=== PATIENT | male | born 1980 ===

== ENCOUNTER 2017-02-23 21:44 | Emergency (ER) | payer OTHER ==
[~2017-02-23] VITALS: Ht 172.7 cm; Wt 83.0 kg
[2017-02-23 22:06] VITALS: Ht 172.7 cm; Wt 83.0 kg
--- NOTE | 2017-02-24 02:25 | RADRPT ---
PROCEDURE: Chest. CLINICAL INDICATION: Shortness of breath. TECHNIQUE: Single frontal view of the chest was obtained. COMPARISON: None. FINDINGS: The cardiac silhouette is within normal limits. The aortic arch is unremarkable. There is no focal consolidation, vascular congestion or pleural effusion. There is no pneumothorax. IMPRESSION: No evidence for active cardiopulmonary disease. .Angel Muller MD, MD Date Time Electronically viewed and signed by .Angel Muller MD, on 02/24/2017 02:25 .T/
--- NOTE | 2017-02-24 02:45 | ERD ---
ER Documentation Chief Complaint Chief Complaint SOB x2wk after took sex enhancement.Intermittent CP x 5 days,none now. HIV+ HPI 36-year-old male presents to emergency department for multiple complaints. Patient is complaining of episode of on and off shortness of breath, intermittent chest pains after taking isopopryl nitrate for sexual enhancement patient has been having on and off symptoms. Patient described the chest pain as sharp pain, 4/10 scale, not better or worse with anything. Patient also had this chest pain when he had an argument with his mom. Patient denies any chest pain at this time. Patient denies any dyspnea on exertion or dyspnea on lying down. Patient denies any dizziness ROS All systems reviewed and are negative except as per history of present illness. Medications Home Meds Reported Medications [none] Unknown Strength No Conflict Check 02/24/17 Allergies Allergies: Coded Allergies: No Known Allergy (Unverified , 02/23/17) PMhx/Soc Medical and Surgical Hx: pt denies Surgical Hx History of Surgery: No Anesthesia Reaction: No Hx Neurological Disorder: No Hx Respiratory Disorders: No Hx Cardiac Disorders: No Hx Psychiatric Problems: No Hx Miscellaneous Medical Probl: Yes (HIV+ 5 years) Hx Alcohol Use: No Hx Substance Use: No Hx Tobacco Use: No Smoking Status: Never smoker Physical Exam Vitals Vital Signs Date Time Temp Pulse Resp B/P Pulse Ox O2 Delivery O2 Flow Rate FiO2 02/23/17 22:06 97.0 88 18 138/96 98 Physical Exam GENERAL: The patient is well developed and appropriate for usual state of health, in no apparent distress. CHEST: Clear to auscultation bilaterally. There are no rales, wheezes or rhonchi. HEART: Regular rate and rhythm. No murmurs, clicks, rubs or gallops. No S3 or S4. ABDOMEN: Soft, nontender and nondistended. Good bowel sounds. No rebound or guarding. No gross peritonitis. No gross organomegaly or masses. No Melissa sign or McBurney point tenderness. BACK: No midline or flank tenderness. EXTREMITIES: Equal pulses bilaterally. There is no peripheral clubbing, cyanosis or edema. No focal swelling or erythema. Full range of motion. Grossly neurovascularly intact. NEURO: Alert and oriented. Cranial nerves 2-12 intact. Motor strength in all 4 extremities with 5/5 strength. Sensation grossly intact. Normal speech and gait. SKIN: There is no apparent rash or petechia. The skin is warm and dry. HEMATOLOGIC AND LYMPHATIC: There is no evidence of excessive bruising or lymphedema. No gross cervical, axillary, or inguinal lymphadenopathy. Result Diagram: 02/24/17 0241 02/24/17 0241 Results 24 hrs Laboratory Tests Test 02/24/17 02:41 White Blood Count 6.710^3/ul Red Blood Count 5.5610^6/ul Hemoglobin 17.2g/dl Hematocrit 49.1% Mean Corpuscular Volume 88.3fl Mean Corpuscular Hemoglobin 30.9pg Mean Corpuscular Hemoglobin Concent 35.0g/dl Red Cell Distribution Width 12.3% Platelet Count 05108^3/UL Mean Platelet Volume 10.4fl Neutrophils % 55.9% Lymphocytes % 31.0% Monocytes % 7.6% Eosinophils % 4.3% Basophils % 0.6% Nucleated Red Blood Cells % 0.0/100WBC Neutrophils # 3.810^3/ul Lymphocytes # 2.110^3/ul Monocytes # 0.510^3/ul Eosinophils # 0.310^3/ul Basophils # 0.010^3/ul Nucleated Red Blood Cells # 0.010^3/ul Sodium Level 145mmol/L Potassium Level 4.1mmol/L Chloride Level 103mmol/L Carbon Dioxide Level 30mmol/L Anion Gap 16 Blood Urea Nitrogen 11mg/dl Creatinine 0.97mg/dl Glucose Level 95mg/dl Calcium Level 9.5mg/dl Total Bilirubin 0.7mg/dl Direct Bilirubin 0.00mg/dl Indirect Bilirubin 0.7mg/dl Aspartate Amino Transf (AST/SGOT) 28IU/L Alanine Aminotransferase (ALT/SGPT) 39IU/L Alkaline Phosphatase 70IU/L Troponin I < 0.012ng/ml Total Protein 7.8g/dl Albumin 5.3g/dl Globulin 2.50g/dl Albumin/Globulin Ratio 2.12 EKG was done, read by me and is normal sinus rhythm at a rate of 71, normal axis , there is no ST changes or changes in the EKG that indicates any cardiac emergencies at this time. Patient's EKG was also reviewed by Dr. Yang. Impression: no acute findings on EKG PROCEDURE: Chest. CLINICAL INDICATION: Shortness of breath. TECHNIQUE: Single frontal view of the chest was obtained. COMPARISON: None. FINDINGS: The cardiac silhouette is within normal limits. The aortic arch is unremarkable. There is no focal consolidation, vascular congestion or pleural effusion. There is no pneumothorax. IMPRESSION: No evidence for active cardiopulmonary disease. .Angel Muller MD, MD Date Time Electronically viewed and signed by .Angel Muller MD, MD on 02/24/2017 02:25 .T/ CC: JOHN KUMAR NP Procedures/MDM Medical Decision Making: Symptoms of chest pain nonspecific at this time, most likely is consistent with normal musculoskeletal pain, possibly anxiety. There is low suspicion for cardiopulmonary emergencies at this time. Patient has low risk factors. EKG is normal, there is no changes in the EKG that indicates cardiac emergencies. Chest X-ray does not show cardiopulmonary emergencies at this time. There is low suspicion for aortic aneurysm, myocardial infarction, pneumothorax, pleural effusion, pulmonary embolism, or any other cardiopulmonary emergencies at this time. Cardiac markers are normal. Negative troponin puts patient is at low risk for acute coronary syndrome, heart score is 1. Is advised to follow-up with primary care doctor in 1-2 days for reevaluation of symptoms, possibly cardiology evaluation. Patient was advised to return to emergency department for any worsening symptoms. Dispostion: Home. Stable Disclaimer: Inadvertent spelling and grammatical errors are likely due to EHR/ dictation software use and do not reflect on the overall quality of patient care. Also, please note that the electronic time recorded on this note does not necessarily reflect the actual time of the patient encounter. Departure Diagnosis: Primary Impression: Atypical chest pain Condition: Stable Patient Instructions: Chest Pain, Uncertain Cause Additional Instructions: Is advised to follow-up with primary care doctor in 1-2 days for reevaluation of symptoms, possibly cardiology evaluation. Patient was advised to return to emergency department for any worsening symptoms. JOHN KUMAR NP Feb 24, 2017 02:45
== END 2017-02-24 04:38 | disposition home or self-care (01) ==
LOC: FTE 21:44
DX: R07.89 Other chest pain (principal)
CPT/HCPCS: 71010; 80053; 84484; 85025; Z7502